=== PATIENT | female | born 1990 | race Caucasian/White ===

== ENCOUNTER → 2019-09-01 | Outpatient (CLI) | payer OTHER | END | disposition home or self-care (01) | LOC: LAB EV 14:27 → LAB SHORT 14:27 | DX: J02.9 Acute pharyngitis, unspecified (principal) | CPT/HCPCS: 87081 ==

== ENCOUNTER → 2024-10-03 | Outpatient (CLI) | payer OTHER ==
[2024-10-03 12:58] LABS: BASOPHILS ABSOLUTE AUTO 0.03 K/mm3 (0.00-0.23); BASOPHILS PERCENT AUTO 1 % (0-2); EOSINOPHILS ABSOLUTE AUTO 0.06 K/mm3 (0.00-0.68); EOSINOPHILS PERCENT AUTO 1 % (0-6); Hematocrit 34.8 % (33.0-51.0); Hemoglobin 11.6 g/dL (11.5-16.0); IMMATURE GRAN ABSOLUTE AUTO 0.01 K/mm3 (0.00-0.10); IMMATURE GRAN PERCENT AUTO 0 % (0-1); LYMPHOCYTES ABSOLUTE AUTO 1.18 K/mm3 (0.84-5.20); LYMPHOCYTES PERCENT AUTO 24 % (21-46); MONOCYTES ABSOLUTE AUTO 0.59 K/mm3 (0.16-1.47); MONOCYTES PERCENT AUTO 12 % (4-13); Mean Corpuscular HGB 30.9 pg (26.0-34.0); Mean Corpuscular HGB Conc 33.3 g/dL (31.5-36.5); Mean Corpuscular Volume 93 fL (80-100); Mean Platelet Volume 9.8 fL (9.1-12.4); NEUTROPHILS ABSOLUTE AUTO 3.15 K/mm3 (1.96-9.15); NEUTROPHILS PERCENT AUTO 63 % (41-73); Platelet Count 311 K/mm3 (150-400); RDW Coefficient Variation 12.1 % (11.7-14.2); RDW Standard Deviation 41.2 fL (35.1-46.3); Red Blood Cell Count 3.76 M/mm3 (3.80-5.20); White Blood Cell Count 5.02 K/mm3 (4.00-11.30)
[2024-10-03 17:36] LABS: Alanine Aminotransfer (ALT/SGP 20 U/L (12-78); Albumin, Blood 3.7 g/dL (3.4-5.0); Albumin/Globulin Ratio 1.1 (0.8-1.8); Alk Phos 35 U/L (50-136); Anion Gap 14 mmol/L (3-11); Aspartate Aminotrans (AST/SGOT 15 U/L (12-37); Bilirubin, Total 0.5 mg/dL (0.1-1.0); Blood Urea Nitrogen 10 mg/dL (8-24); Bun/Creatinine Ratio 12.6 (12.0-20.0); CHOL/HDL RATIO 1.9; CO2, Blood 24 mmol/L (21-32); Calcium, Blood 8.5 mg/dL (8.5-10.1); Chloride, Blood 106 mmol/L (98-108); Cholesterol 130 mg/dL (50-200); Creatinine, Blood 0.79 mg/dL (0.40-1.00); Globulin, Blood 3.3 g/dL (2.2-4.0); Glomerular Filtration Rate 99 (60-); Glucose, Blood 82 mg/dL (70-99); HDL Cholesterol 69 mg/dL (>39); LDL/HDL RATIO 0.8; Low Density Lipoprotein Chol 54 mg/dL (0-110); Potassium, Blood 3.8 mmol/L (3.5-5.5); Sodium, Blood 140 mmol/L (136-145); Triglycerides 33 mg/dL (30-140); Very Low Density Lipoprot Chol 6 mg/dL (6-28)
[2024-10-05 09:18] LABS: HIV 1,2 COMBO ANTIGEN/ANTIBODY Negative (Negative)
[2024-10-05 14:23] LABS: HEPATITIS C AB CIA INTERP Negative (Negative); HEPATITIS C ANTIBODY CIA INDEX 0.07 IV
== END | disposition home or self-care (01) ==
LOC: LAB SHORT 12:29
PROVIDERS: Nurse Practitioner Family
DX: Z00.00 Encounter for general adult medical examination without abnormal findings (principal); Z11.59 Encounter for screening for other viral diseases; Z11.4 Encounter for screening for human immunodeficiency virus [HIV]; E55.9 Vitamin D deficiency, unspecified
CPT/HCPCS: 80053; 80061; 82306; 83036; 84443; 85025; 86803; 87389